=== PATIENT | male | born 1985 | race Caucasian/White ===

== ENCOUNTER 2017-12-01 17:18 | Emergency (ER) | payer OTHER ==
--- NOTE | 2017-12-01 18:25 | UC ---
Dental HPI - HPI Summary HPI Summary: 32 YEAR OLD MALE PRESENTS WITH ORAL CANKER SORES. - History of Current Complaint Stated Complaint: ORAL COMPLAINT Time Seen by Provider: 12/01/17 18:24 Hx Obtained From: Patient Onset/Duration: Sudden Onset Severity: Moderate Pain Scale Used: 0-10 Numeric - 7 - Allergies/Home Medications Allergies/Adverse Reactions: Allergies Allergy/AdvReac Type Severity Reaction Status Date / Time No Known Allergies Allergy Verified 12/01/17 18:27 PMH/Surg Hx/FS Hx/Imm Hx Previously Healthy: Yes - Surgical History Surgical History: None - Family History Known Family History: Positive: None - Social History Alcohol Use: None Review of Systems Constitutional: Negative Skin: Negative Eyes: Negative ENT: Other - CANKER SORE Respiratory: Negative Cardiovascular: Negative Gastrointestinal: Negative Genitourinary: Negative Motor: Negative Neurovascular: Negative Musculoskeletal: Negative Neurological: Negative Psychological: Negative All Other Systems Reviewed And Are Negative: Yes Physical Exam Triage Information Reviewed: Yes Vital Signs Reviewed: Yes Eye Exam: Normal ENT: Positive: Other - CANKER SORE Dental Exam: Normal Neck exam: Normal Neck: Positive: 1 Respiratory Exam: Normal Cardiovascular Exam: Normal Abdominal Exam: Normal Musculoskeletal Exam: Normal Neurological Exam: Normal Psychological Exam: Normal Skin Exam: Normal Dental Complaint Course/Dx - Differential Dx/Diagnosis Provider Diagnoses: CANKER SORE Discharge - Discharge Plan Condition: Stable Disposition: HOME Prescriptions: Amoxicillin PO (*) [Amoxicillin 500 MG CAP*] 500 mg PO TID #30 cap Magic M W2 Senthil/Maal/Nyst/Lido* 5 ml SWISH SPIT QID PRN #120 ml PRN Reason: Pain Triamcinolone PASTE 0.1% (NF) [Triamcinolone 0.1% PASTE *] 1 applic TOPICAL TID PRN #2 tube PRN Reason: Pain Patient Education Materials: Canker Sores (ED) Referrals: No Primary Care Phys,NOPCP [Primary Care Provider] -
[2017-12-01 18:27] VITALS: BP 151/84
== END 2017-12-01 19:05 | disposition home or self-care (01) ==
LOC: UCCORT 17:18
DX: K12.0 Recurrent oral aphthae (principal)
CPT/HCPCS: 99212; G0463